=== PATIENT | male | born 1970 | race Caucasian/White ===

== ENCOUNTER → 2016-10-05 | Day surgery (SDC) | payer BC ==
[2016-09-30 10:11] LABS: HEMATOCRIT 41.6 % (37.9-51.0); HEMOGLOBIN 14.5 g/dL (13.5-17.0); HGB HCT DIFFERENCE 1.9; MEAN CORPUSCULAR HEMOGLOBIN 30.5 pg (27.0-33.4); MEAN CORPUSCULAR HGB CONC 34.9 g/dL (32.0-36.0); MEAN CORPUSCULAR VOLUME 88 fl (80-97); RED BLOOD COUNT 4.76 10^6/uL (4.35-5.55); RED CELL DISTRIBUTION WIDTH 12.4 % (11.5-14.0); WHITE BLOOD COUNT 7.7 10^3/uL (4.0-10.5)
[2016-09-30 10:36] LABS: ANION GAP 14 (5-19); BLOOD UREA NITROGEN 19 mg/dL (7-20); CALCIUM 9.5 mg/dL (8.4-10.2); CARBON DIOXIDE 27 mmol/L (22-30); CHLORIDE 101 mmol/L (98-107); CREATININE RESULT 0.85 mg/dL (0.52-1.25); GLUCOSE 104 mg/dL (75-110); POTASSIUM 4.3 mmol/L (3.6-5.0)
[~2016-10-05] MED LIST: ACETAMINOPHEN 325 MG TABLET PO PRN; ALBUTEROL SULFATE 0.083% NEB 2.5 MG/3 ML AMPUL NEB ONE; BUPIVACAINE HCL 0.25 % INJ/PF (2.5 MG/1 ML) 30 ML VIAL ONE; CEFAZOLIN 2 GM/D5W RTU 2 GM/50 ML RTUPB IV SCH; LACTATED RINGERS 1000 ML IV PRN; LIDOCAINE 0.5% INJ-PF (5 MG/ML) 50 ML SDV SUBCUT PRN; RINGERS SOLUTION,LACTATED 1,000 ML IV PRN
[2016-10-05 12:27] VITALS: BP 169/99
== END ==
LOC: OROUT 11:13
PROVIDERS: ATTEND Surgery
DX: K42.9 Umbilical hernia without obstruction or gangrene (principal); Z01.818 Encounter for other preprocedural examination; I10 Essential (primary) hypertension; K21.9 Gastro-esophageal reflux disease without esophagitis
CPT/HCPCS: 36415; 85027; 80048; 71010; 94640; J0690

== ENCOUNTER 2017-03-22 11:58 | Day surgery (SDC) | payer BC ==
[2017-03-15 09:32] LABS: HEMATOCRIT 44.2 % (37.9-51.0); HEMOGLOBIN 14.5 g/dL (13.5-17.0); HGB HCT DIFFERENCE -0.7; MEAN CORPUSCULAR HEMOGLOBIN 29.9 pg (27.0-33.4); MEAN CORPUSCULAR HGB CONC 32.8 g/dL (32.0-36.0); MEAN CORPUSCULAR VOLUME 91 fl (80-97); RED BLOOD COUNT 4.85 10^6/uL (4.35-5.55); RED CELL DISTRIBUTION WIDTH 12.7 % (11.5-14.0); WHITE BLOOD COUNT 6.5 10^3/uL (4.0-10.5)
[2017-03-15 09:51] LABS: ANION GAP 11 (5-19); BLOOD UREA NITROGEN 19 mg/dL (7-20); CALCIUM 8.8 mg/dL (8.4-10.2); CARBON DIOXIDE 25 mmol/L (22-30); CHLORIDE 103 mmol/L (98-107); CREATININE RESULT 0.76 mg/dL (0.52-1.25); GLUCOSE 108 mg/dL (75-110); POTASSIUM 4.3 mmol/L (3.6-5.0); SODIUM 139.3 mmol/L (137-145)
[~2017-03-22 11:58] MED LIST changes: -ALBUTEROL SULFATE 0.083% NEB 2.5 MG/3 ML AMPUL NEB ONE; -BUPIVACAINE HCL 0.25 % INJ/PF (2.5 MG/1 ML) 30 ML VIAL ONE; +CEFAZOLIN 1 GM/D5W RTU 1 GM/50 ML RTUPB IV PRN; +CEFAZOLIN 2 GM/D5W RTU 2 GM/50 ML RTUPB IV PRN; -CEFAZOLIN 2 GM/D5W RTU 2 GM/50 ML RTUPB IV SCH; +GLYCOPYRROLATE INJ 0.4 MG/2 ML VIAL ONE; +LIDOCAINE 2% INJ-PF (20 MG/ML) 10 ML AMPUL ONE; +METOCLOPRAMIDE HCL INJ/PF 10 MG/2 ML SDV ONE; +NEOSTIGMINE METHYLSULFATE 10 MG/10 ML VIAL ONE; +ONDANSETRON HCL INJ/PF 4 MG/2 ML SDV ONE; +PHENYLEPHRINE HCL INJ/PF 10 MG/1 ML SDV ONE; -RINGERS SOLUTION,LACTATED 1,000 ML IV PRN; +ROCURONIUM BROMIDE INJ 50 MG/5 ML VIAL IV ONE; +SUCCINYLCHOLINE CHLORIDE INJ 200 MG/10 ML VIAL ONE
[2017-03-22] MEDS ORDERED: BUPIVACAINE HCL 0.25 % INJ/PF (2.5 MG/1 ML) 30 ML VIAL ONE (15:03)
[2017-03-22] MEDS ORDERED: FENTANYL CITRATE INJ/PF 250 MCG/5 ML AMPULE ONE (17:35)
[2017-03-22] MEDS ORDERED: MIDAZOLAM 2 MG/2 ML INJ ONE (17:35)
[2017-03-22] MEDS ORDERED: PROPOFOL INJ 200 MG/20 ML VIAL IV ONE (17:36)
[2017-03-22] MEDS ORDERED: IBUPROFEN INJ 800 MG/8 ML VIAL IV ONE (17:36)
[2017-03-22] MEDS ORDERED: MORPHINE SULFATE 10 MG/ML INJ ONE (17:36)
--- NOTE | 2017-03-22 18:56 | Operative Report ---
Operative Report DATE OF SURGERY: 03/22/17 PREOPERATIVE DIAGNOSIS: Umbilical hernia POSTOPERATIVE DIAGNOSIS: Umbilical hernia OPERATION: Laparoscopic umbilical hernia repair with mesh SURGEON: CLINT MARTINEZ ANESTHESIA: GA TISSUE REMOVED OR ALTERED: None COMPLICATIONS: None ESTIMATED BLOOD LOSS: Minimal INTRAOPERATIVE FINDINGS: 2-1/2 cm fascial defect at the umbilicus with herniated omentum PROCEDURE: Informed consent was obtained. Patient was brought to the operating room placed on the operating table in supine position. After satisfactory induction of general anesthesia patient's abdomen was prepped and draped in usual sterile fashion. A subxiphoid midline incision was made dissection carried down through the fascia and the peritoneal cavity was entered without difficulty. Shirley trocar was inserted and pneumoperitoneum produced with good patient toleration. Laparoscopic view demonstrated a 2.5 cm fascial defect at the umbilicus with herniated omentum. Two 5 mm trochars were placed in the left lateral abdomen these trochars were removed to the right side for fixation of the mesh near the conclusion of the procedure. The omental adhesion was taken down. Mesh repair was then performed with 9 cm Covidien parietex composite mesh. It was affixed at 4 quadrants using trans-fascial PDS sutures and it was affixed circumferentially using absorbable tacking device. The mesh laid flat with excellent coverage. Hemostasis appeared excellent. All trochars were removed under the direct vision of the laparoscope to ensure hemostasis. The Shirley trocar site fascial defect was closed with interrupted Vicryl sutures. Marcaine was injected at the operative sites. Skin incisions were closed with subcuticular interrupted Monocryl sutures. Patient tolerated procedure well with no apparent complications and was taken to the recovery in stable condition.
[2017-03-22] MEDS ORDERED: OXYCODONE-ACETAMINOPHEN 5-325 MG TABLET PO PRN (18:59)
[2017-03-22] MEDS ORDERED: ONDANSETRON HCL INJ/PF 4 MG/2 ML SDV IV PRN (18:59)
[2017-03-22] MEDS ORDERED: RINGERS SOLUTION,LACTATED 1,000 ML IV PRN (18:59)
[2017-03-22] MEDS ORDERED: MORPHINE SULFATE 10 MG/ML INJ IV PRN (18:59)
--- NOTE | 2017-03-22 18:59 | PDOC DISCHARGE SUMMARY ---
Discharge Summary (SDC) - Discharge Final Diagnosis: Umbilical hernia Date of Surgery: 03/22/17 Discharge Date: 03/22/17 Condition: Good Treatment or Instructions: Laparoscopic umbilical hernia repair with mesh. May discharge patient home when met discharge criteria. Follow-up with me in 2 weeks. Stay active but avoid strenuous activity. May shower in 2 days. Keep Steri-Strips on. Prescriptions: Docusate Sodium [Colace 100 mg Capsule] 100 mg PO BID #60 capsule Oxycodone HCl/Acetaminophen [Percocet 5-325 mg Tablet] 1 - 2 tab PO ASDIR PRN # 25 tablet PRN Reason: For Pain Discharge Diet: As Tolerated Discharge Activity: Activity As Tolerated - Still active but avoid strenuous activity. Report the Following to Your Physician Immediately: Fever over 101 Degrees, Unusual Bleeding, Redness, Drainage-Foul Smelling
[2017-03-22 22:54] VITALS: BP 150/86
== END 2017-03-22 23:00 | disposition home or self-care (01) ==
LOC: OROUT 11:58 → 2N 19:44 → UNDOADMOB 19:44 → OROUT 23:00 → UNDODISOB 23:00
PROVIDERS: ATTEND Surgery
PROC: 0WUF4JZ Supplement Abdominal Wall with Synthetic Substitute, Percutaneous Endoscopic Approach (ICD-10-PCS; principal; 2017-03-22 15:00)
DX: K42.9 Umbilical hernia without obstruction or gangrene (principal); I10 Essential (primary) hypertension; K21.9 Gastro-esophageal reflux disease without esophagitis; Z83.71 Family history of colonic polyps; Z01.818 Encounter for other preprocedural examination
CPT/HCPCS: 36415 ×2; 84132; 85027; 80048; 49652; C1781; J2250; J3490 ×2; J3010; J2765; J2270; J2370; J0330; J2405; J2704; J0690; J1741; 790